=== PATIENT | female | born 1990 | race Caucasian/White ===

== ENCOUNTER 2021-03-07 06:09 | Inpatient (IN) | payer MEDICAID, OTHER ==
--- NOTE | 2021-03-07 06:39 | ED ---
Psych HPI - General Chief Complaint: Psychiatric Symptoms Stated Complaint: Mental Health Time Seen by Provider: 03/07/21 06:21 Source: patient, family, RN notes reviewed, old records reviewed Mode of arrival: ambulatory - History of Present Illness Initial Comments: This Patient is a 30-year-old female who presents to the emergency department with her mother. Chief complaint is significant anxiety and suicidal thoughts. Patient reports that she has a long mental health history and previously was on Prozac and Abilify. She reports that she stopped Prozac 6 months ago due to an causing her to lactate. Patient states that she then stopped her Abilify as these medications had to be together to work. Since that time she's been self- medicating with marijuana (she has medical marijuana card), however she had to stop marijuana use that she's trying to get apartment. The apartments are federally funded based on income and she cannot have a positive drug test. Patient reports that she has been having significant difficulty with obtaining mental health services. She does see [facility], and states that her current counselor has not been helpful and has working to change her social security inflammation and [facility]. Patient states that she has lost 14 pounds within past few months and has poor sleep. She states she'll eat and sleep 3 hours of time. When she arrives emergency department she is hyperverbal and mildy agitated. She also notes that she has significant adverse reactions to different medications, stating that ativan has reverse affect on her. She said multiple suicide attempts in the past, and states "I am so dumb I can't even kill myself successfully." Denies other substance abuse and alcohol use. Patient reports that she was hospitalized 10 years ago after suffering from depression. She reports that when she has changed medication she does best when being supervised and she's had significant adverse or reverse effects from multiple psychiatric medications. - Related Data Allergies Allergy/AdvReac Type Severity Reaction Status Date / Time amoxicillin Allergy Rash/Hives Verified 03/07/21 06:19 clindamycin Allergy Rash/Hives Verified 03/07/21 06:19 Review of Systems ROS Statement: Those systems with pertinent positive or pertinent negative responses have been documented in the HPI. ROS Other: All systems not noted in ROS Statement are negative. Past Medical History Additional Past Medical History / Comment(s): back pain Past Surgical History: Ear Surgery Past Psychological History: ADD/ADHD, Anxiety, Bipolar, Depression, Schizophrenia Smoking Status: Former smoker Past Alcohol Use History: None Reported Past Drug Use History: Marijuana General Exam - General Exam Comments Initial Comments: Alert and oriented 30-year-old female. Agitated and hyperverbal. Limitations: no limitations General appearance: alert, in no apparent distress Head exam: Present: atraumatic, normocephalic, normal inspection Eye exam: Present: normal appearance, PERRL, EOMI. Absent: scleral icterus, conjunctival injection, periorbital swelling ENT exam: Present: normal exam Neck exam: Present: normal inspection. Absent: tenderness, meningismus, lymphadenopathy Respiratory exam: Present: normal lung sounds bilaterally. Absent: respiratory distress, wheezes, rales, rhonchi, stridor Cardiovascular Exam: Present: regular rate, normal rhythm, normal heart sounds. Absent: systolic murmur, diastolic murmur, rubs, gallop, clicks GI/Abdominal exam: Present: soft, normal bowel sounds. Absent: distended, tenderness, guarding, rebound, rigid Back exam: Present: normal inspection Neurological exam: Present: alert, oriented X3 Psychiatric exam: Present: agitated, anxious, suicidal ideation, other (manic behaviour, hyperverbal ). Absent: normal affect Skin exam: Present: warm, dry, intact, normal color. Absent: rash Course Vital Signs 03/07/21 06:13 Temperature 98.1 F Pulse Rate 93 Respiratory 20 Rate Blood Pressure 115/76 O2 Sat by Pulse 99 Oximetry Medical Decision Making - Medical Decision Making 30-year-old female presents for manic state and suicidal thoughts. Patient is hyperverbal and mildly agitated in exam room. She has been cooperative. Alcohol test is negative. Patient is medically clear at this time for EPS evaluation at 6:39 AM. She was evaluated by EPS and is determined to best be suited with inpatient treatment and admission to balance her medications. Patient is agreeable to this plan. She's been cooperative and emergency department. Was admitted to psychiatric floor. - Lab Data Lab Results 03/07/21 Range/Units 07:14 Urine Opiates Screen Not Detected (NotDetected) Ur Oxycodone Screen Not Detected (NotDetected) Urine Methadone Screen Not Detected (NotDetected) Ur Propoxyphene Screen Not Detected (NotDetected) Ur Barbiturates Screen Not Detected (NotDetected) U Tricyclic Antidepress Not Detected (NotDetected) Ur Phencyclidine Scrn Not Detected (NotDetected) Ur Amphetamines Screen Not Detected (NotDetected) U Methamphetamines Scrn Not Detected (NotDetected) U Benzodiazepines Scrn Not Detected (NotDetected) Urine Cocaine Screen Not Detected (NotDetected) U Marijuana (THC) Screen Detected H (NotDetected) Disposition Clinical Impression: Manic behavior, Suicidal ideation Disposition: TRANSFER TO PSYCH HOSP/UNIT Condition: Stable Is patient prescribed a controlled substance at d/c from ED?: No Referrals: [facility] [Primary Care Provider] - 1-2 days Time of Disposition: 09:36
[2021-03-07 07:45] LABS: Amphetamine Screen,Urine Not Detected (NotDetected); Barbiturate Screen,Urine Not Detected (NotDetected); Benzodiazepines Screen,Urine Not Detected (NotDetected); Cocaine Screen,Urine Not Detected (NotDetected); Methadone Screen, Urine Not Detected (NotDetected); Opiate Screen,Urine Not Detected (NotDetected); Oxycodone Screen, Urine Not Detected (NotDetected); Phencyclidine Screen,Urine Not Detected (NotDetected); Tricyclic Antidepressant,Urine Not Detected (NotDetected); Urn Cannabinoid Scrn Detected (NotDetected)
[2021-03-07] MEDS ORDERED: MAGNESIUM HYDROXIDE 2,400 MG/10 ML CUP PO PRN (09:32)
[2021-03-07] MEDS ORDERED: ACETAMINOPHEN TAB 325 MG TAB PO PRN (09:32)
[2021-03-07] MEDS ORDERED: MAG HYDROX/AL HYDROX/SIMETH 30 ML CUP PO PRN (09:32)
[2021-03-07 09:41] LABS: Appearance,Urine Cloudy (Clear); Bilirubin,Urine Negative (Negative); Blood,Urine Negative (Negative); Calcium Oxalate Crystals,Urine Moderate /hpf; Color,Urine Yellow; Glucose,Urine (UA) Negative (Negative); Hyaline Casts,Urine 1 /lpf (0-2); Ketones,Urine Negative (Negative); Leukocyte Esterase,Urine Negative (Negative); Mucus,Urine Many /hpf; Nitrite,Urine Negative (Negative); Protein,Urine 1+ (Negative); RBC,Urine 1 /hpf (0-5); Specific Gravity,Urine 1.031 (1.001-1.035); Squamous Epithelial Cell,Urine 16 /hpf (0-4); Urobilinogen,Urine <2.0 mg/dL (<2.0); WBC,Urine 2 /hpf (0-5)
[2021-03-07] MEDS ORDERED: haloperidoL 5 MG TAB PO PRN (09:51)
[2021-03-07] MEDS ORDERED: HALOPERIDOL LACTATE 5 MG/ML 1 ML VIAL IM PRN (09:52)
[2021-03-07] MEDS ORDERED: OLANZapine 5 MG TAB PO STA (11:51)
--- NOTE | 2021-03-07 13:21 | HP ---
HISTORY AND PHYSICAL IDENTIFYING DATA: The patient is a 30-year-old female. She has been residing with her mother who brought her to the ED for evaluation. CHIEF COMPLAINT: The patient had high anxiety. She was hyperverbal and showed excessive energy. She was disorganized in thoughts. HISTORY OF PRESENTING ILLNESS: The patient has had long-term psychiatric issues. She said that she has had 18 or 19 psychiatric hospitalizations. Her last hospitalization was in [place] in October 2017. She had been living in [place] for a few years. The patient notes that she had 1 hospitalization in this facility about 10 years ago when she was hospitalized for depression. She said that she had been diagnosed with autism or Asperger's as a child and in fact starting at a very young age had been tried on various medications. She was somewhat vague about the indication for the medications. She notes that at age 12, she was tried on lithium and had been tried for 3 other times on lithium with the last being when she was 17 or 18. She said each time she was on lithium, she has blackouts. She says starting as a child and continuing up to the present, she has been on most every psychotropic medication that she is aware of. She listed about 8 or 9 psychiatric diagnoses that she has had including schizophrenia, schizoaffective disorder, bipolar disorder, trichotillomania, obsessive compulsive disorder amongst others. She says that she believes she likely has bipolar disorder. She notes that she has episodes of rayo where she has decreased need for sleep. She will have excessive energy. Her thoughts go fast. People will tell her she is talking too much and that she cannot stop talking. She will have some impulsive behavior. She said she has been in a manic episode for the last 1-2 weeks. She notes in the past that she will get into manic episodes that may last 1 or 2 weeks and then she can go from that into depression. She says that she can cycle back and forth between manic episodes that she described and depression. She had been on a combination of Abilify and Prozac, though she stopped those 6 months ago because she thought they were causing . She said in the last 6 months, she essentially has only been using marijuana to help quiet some of her psychiatric symptoms. She notes long-term use of marijuana going back to teenage years. She has been smoking marijuana on a daily basis. She feels that the marijuana has been somewhat helpful for her to manage her symptoms. She notes that she can get into panic attacks where it is hard to breathe. She will do behavior such as "stemming" in order to help calm her nerves. She has no noted at times some abnormal movements that she has had. She was uncertain about whether she has had auditory hallucinations. She says that she does have some visual illusions where she sees shimmering like one might see in a distance on the road. She said she can see that kind of shimmering when she looks up at electric towers. She says she recognizes that it is not likely reality. She indicated some issues of posttraumatic problems, though did not provide details. She is currently not on any psychotropic medications. She is admitted for further evaluation. SUBSTANCE USE HISTORY: She reports only use of marijuana and no use of other abusive substances. She has used alcohol in the past, though has not used alcohol for a number of years. PAST MEDICAL HISTORY: Patient has elevated cholesterol, asthma, and scoliosis with some back pain. She has 2 children, ages 7 and 10, though she has not had custody or contacts since they were very young. FAMILY AND SOCIAL HISTORY: Patient notes a high school diploma. Currently, she is living with the mother of her half-sister whom she calls her mother. She has 4 half-sisters and says she has a good relationship with 3 of them. She had been previously living with her father in [place] for 2 years, though the 2 of them had conflicts, so she moved out. She notes that she has written 1 book entitled "[place]" with P and the C being capitalized." The book is available on [employer]. It is a book of poetry. She has been working on a 2nd book. She said that she has too much difficulties with focus and concentration to be able to attend any formal education classes such as going to college. MENTAL STATUS EXAM: The patient was quite restless. She gave fairly good eye contact. It was noteworthy that she presented in a very intense manner. She would talk fast. She would jump from subject to subject. She had flight of ideas, loose association and tangential thinking. She had rapid pressured speech. She could be interrupted, though at times she needed to have very cleared direction to be quiet in order to have an adequate conversation. Her affect was intense. Her mood dysphoric. She was significantly distressed. She suggested some visual hallucinations. She voiced no thoughts of harm. She said that the report of her having suicide thoughts from the emergency room record was not accurate, though she acknowledged a past history of suicide thoughts, though not in the last year or more. On cognitive exam, she did make an effort to answer formal cognitive questions. She was oriented and alert. She was aware of current circumstances and could give information about recent events that is consistent with what is documented in the medical record. Insight was fair to good. Judgment uncertain. Fund of knowledge average or above average. PHYSICAL EXAM: As per medical consultation. ASSESSMENT: This 30-year-old female was diagnosed with bipolar affective disorder and autistic spectrum disorder. She has been having a manic episode over the last 2 weeks, though also describes episodes of rayo and depression as a fairly regular occurrence for her. She has been using marijuana on a daily basis, which likely exacerbates her symptoms. I would anticipate her having significant withdrawal issues from marijuana. She does appear to have some family supports. STRENGTHS: Include [place] intelligence and some reasonable level of awareness of some of her psychiatric issues. WEAKNESS: Includes disordered thinking. DIAGNOSES: 1. Bipolar affect disorder, manic phase with psychotic features. 2. Autistic spectrum disorder. 3. Hypercholesterolemia. 4. Scoliosis. 5. Asthma. RECOMMENDATIONS: Patient will be admitted for comprehensive medical psychiatric and psychosocial evaluation. We will engage the patient in individual and group therapeutic activities. I will start the patient on Zyprexa 5 mg 3 times a day. The aim of Zyprexa is to address bipolar manic symptoms along with some apparent psychotic symptoms. I had an extensive discussion with the patient regarding medication treatments. I briefly reviewed expectation of treatment, side effects and potential concerns with Zyprexa in regard to metabolics and movement disorder issues. I encouraged the patient to do some therapeutic walking on a regular basis to help contain some of her manic symptoms. I encouraged her to make efforts at groups. We will focus on stabilization and discharge planning. MMCAMILOL / GAURIN: [id number] /
[2021-03-07] MEDS: ALBUTEROL INHALER 60 PUFF/8 GM INHALER (MHU) INHALATION PRN ×2 (15:06→21:07)
[2021-03-07] MEDS: OLANZapine 5 MG TAB PO SCH ×2 (15:06→21:07)
--- NOTE | 2021-03-08 01:15 | P.CONS ---
History of Present Illness - Reason for Consult Consult date: 03/07/21 - History of Present Illness The patient is a 30-year-old female with a PMH of mild intermittent asthma, hyperlipidemia, bipolar disorder, ADHD, tobacco abuse, and chronic back pain who presented to the emergency room with complaints of anxiety and suicidal ideation. The patient reports that she was previously using Prozac and Abilify which she subsequently discontinued since she began to lactate. The patient then began self medicating with marijuana for her anxiety which she is unable to currently use since she needs to have a negative drug screen to obtain affordable housing. The patient reported a small scab on the left antecubital fossa which was previously a pimple that she picked at. She denied additional complaints. She denied chest pain, shortness of breath, nausea, vomiting, fever, chills, cough, abdominal pain, diarrhea. Review of Systems Pertinent positives and negatives as discussed in HPI, a complete review of systems was performed and all other systems are negative. Past Medical History Additional Past Medical History / Comment(s): back pain Past Surgical History: Ear Surgery Past Psychological History: ADD/ADHD, Anxiety, Bipolar, Depression, Schizophrenia Smoking Status: Former smoker Past Alcohol Use History: None Reported Past Drug Use History: Marijuana Medications and Allergies Home Medications Medication Instructions Recorded Confirmed Type Albuterol Sulfate [Proair Hfa] 1 - 2 puff INHALATION RT-Q6H PRN 03/07/21 03/07/21 History Atorvastatin [Lipitor] 20 mg PO DAILY 03/07/21 03/07/21 History Allergies Allergy/AdvReac Type Severity Reaction Status Date / Time amoxicillin Allergy Rash/Hives Verified 03/07/21 10:30 clindamycin Allergy Rash/Hives Verified 03/07/21 10:30 Physical Exam Vitals: Vital Signs Temp Pulse Pulse Resp BP BP Pulse Ox 03/07/21 11:52 99.3 F 102 H 20 113/67 03/07/21 06:13 98.1 F 93 20 115/76 99 Intake and Output 03/07/21 03/07/21 03/07/21 06:59 14:59 22:59 Other: Weight 52.707 kg General: non toxic, no distress, appears older than stated age, normal weight Derm: Right antecubital fossa small ulcer 1 cm with mild surrounding erythema, no unusual ecchymoses, warm, dry Head: atraumatic, normocephalic, symmetric Eyes: EOMI, no lid lag, anicteric sclera, pupils equal round reactive to light ENT: Nose and ears atraumatic, no thrush, no pharyngeal erythema Neck: No thyromegaly, no cervical lymphadenopathy, trachea midline, supple Mouth: no lip lesion, mucus membranes moist Cardiovascular: S1S2 reg, no murmur, positive posterior tibial pulse bilateral, no edema, capillary refill less than 2 seconds Lungs: CTA bilateral, no rhonchi, no rales , no accessory muscle use Abdominal: soft, nontender to palpation, no guarding, no appreciable organomegaly, normal bowel sounds Ext: no gross muscle atrophy, muscle strength 5 out of 5 in all 4 extremities grossly, no contractures Neuro: CN II-XI grossly intact, light touch intact all 4 extremities, finger to nose within normal limits Psych: Alert, oriented, pressured speech, flight of ideas Results Labs: Abnormal Lab Results - Last 24 Hours (Table) 03/07/21 03/07/21 Range/Units 07:14 07:14 Urine Appearance Cloudy H (Clear) Urine Protein 1+ H (Negative) Ur Squamous Epith Cells 16 H (0-4) /hpf Calcium Oxalate Crystal Moderate H (None) /hpf Urine Mucus Many H (None) /hpf U Marijuana (THC) Screen Detected H (NotDetected) Assessment and Plan Plan: Mild intermittent asthma -Albuterol inhaler when necessary Hyperlipidemia -Continue with home Lipitor L antecubital fossa ulcer -Topical antibiotics for now Depression and anxiety -As per psychiatry Thank you for allowing us to participate in the care of this patient. We will follow peripherally. Do not hesitate to contact us with questions. Someone can be reached from the [facility] hospitalist group at all hours of the day at [phone].
[2021-03-08] MEDS: MUPIROCIN 2% OINT 22 GM TUBE TOPICAL SCH ×4 (03:51→21:18)
[2021-03-08] MEDS: ALBUTEROL INHALER 60 PUFF/8 GM INHALER (MHU) INHALATION PRN ×2 (06:10→13:43)
[2021-03-08 07:36] LABS: Basophils % (A) 1 %; Eosinophils # (A) 0.1 k/uL (0-0.7); Eosinophils % (A) 2 %; HCT 46.2 % (34.0-46.0); HGB 15.5 gm/dL (11.4-16.0); Lymphocytes # (A) 2.4 k/uL (1.0-4.8); Lymphocytes % (A) 46 %; MCH 30.9 pg (25.0-35.0); MCHC 33.7 g/dL (31.0-37.0); MCV 91.7 fL (80.0-100.0); Mean Platelet Volume 7.4; Monocytes # (A) 0.4 k/uL (0-1.0); Monocytes % (A) 7 %; Neutrophils # (A) 2.2 k/uL (1.3-7.7); Neutrophils % (A) 42 %; Platelet Count 203 k/uL (150-450); RBC 5.03 m/uL (3.80-5.40); RDW 12.4 % (11.5-15.5); WBC 5.2 k/uL (3.8-10.6)
[2021-03-08 07:47] LABS: ALT 13 U/L (4-34); AST 21 U/L (14-36); African American GFR (CKD) >90 (>60 ml/min/1.73 sqM); Albumin 5.2 g/dL (3.5-5.0); Alkaline Phosphatase 55 U/L (38-126); Anion Gap 12 mmol/L; Blood Urea Nitrogen 14 mg/dL (7-17); Calcium 9.8 mg/dL (8.4-10.2); Carbon Dioxide 23 mmol/L (22-30); Chloride 106 mmol/L (98-107); Glucose 91 mg/dL (74-99); Non-African American GFR(CKD) >90 (>60 ml/min/1.73 sqM); Potassium 3.8 mmol/L (3.5-5.1); Sodium 141 mmol/L (137-145); Total Protein 7.9 g/dL (6.3-8.2)
[2021-03-08 08:02] LABS: Bilirubin,Unconjugated 0.9 mg/dL (0.0-1.1); Total Bilirubin 0.9 mg/dL (0.2-1.3)
[2021-03-08] MEDS: OLANZapine 5 MG TAB PO SCH (08:33)
[2021-03-08] MEDS: ATORVASTATIN 20 MG TAB PO SCH (08:33)
[2021-03-08 12:09] LABS: Hemoglobin A1C 4.7 % (4.0-6.0)
[2021-03-08 13:10] VITALS: BMI 21.2
[2021-03-08 14:34] LABS: Chol/HDL Ratio 4.49; Cholesterol 256 mg/dL (0-200); LDL Cholesterol,Calculated 175.6 mg/dL (0.0-131.0)
--- NOTE | 2021-03-08 15:50 | PN ---
PROGRESS NOTE DATE OF SERVICE: 03/08/2021 CHIEF COMPLAINT: The patient had high anxiety. She was hyperverbal and showed excessive energy. She was disorganized in thoughts. INTERVAL HISTORY: Patient has been doing fair. Yesterday she showed excessive energy and impulsive behavior. It is noted she tried to attend groups, though said that the noise and conversation was too stimulating for her and it was hard for her to get focused. She wandered the unit. At times she could get loud. She tended to be hyperverbal much of the time. She has been cooperative with care. She said she only slept minimally last night. Today she has been up. It is noted that she has attended groups today and one group this morning. The following was documented: "The patient has been feeling depressed, having crying spells, feeling hopeless, confused, lonely, empty, has some guilt/shame, feeling useless, having withdrawal symptoms, feeling talked about, anxiety, poor concentration, mood swings, poor energy, feeling watched and feeling controlled." She did not voice any thoughts of harming herself. In other groups, she attended for least half or more of the groups. Some of the time she would get intense in her manner and might speak over others. Sometimes she needed a fair amount of support and reminders to give space to others in the group. She was distressed when I talked to her. She said that belongings that she brought with her to the unit have come up missing. She was very upset about that. She does say her medications are helping. She talked at length about how she believes the medications affect her and that she would be very reluctant going up to any higher dose, stating that the way she responds to medications, it is critical that the doses be titrated up slowly. She says when doses of medications are put a higher doses too quickly, she easily becomes tolerant and then the medications are no longer effective. She continues to be fairly intense in her manner. She says people misinterpret her when they say she her thoughts go fast. She says her problem is not that her thoughts go fast, but that she feels she is flooded with too many thoughts at one time and she cannot get all her words out to move on to the next subject. It is noteworthy that she seems just a little more organized and contained in her thoughts, though still fairly symptomatic. She tolerates her psychotropic medications. MENTAL STATUS: Patient was somewhat restless. She answered questions with brief responses. She tended to talk quite a bit. She was spontaneous and interactive. She had pressured speech and flight of ideas. Her affect was intense, her mood depressed. She was moderately distressed. It was difficult to assess for thought disorder. She voiced no thoughts of harm. Cognition was clear. ASSESSMENT: I will continue the current diagnosis and treatment plan. I discussed options with the patient, including looking at titrating up on her Zyprexa. At this point the patient chooses to continue with the current dose. She believes that she does best with medications when the titration is slower. She does seem to be showing a little bit of improvement, though still quite intense and showing manic symptoms. We will focus on stabilization and discharge planning. JOEL / RADHA: [id number] /
[2021-03-08] MEDS: MELATONIN 5 MG TABLET PO SCH (21:17)
[2021-03-09] MEDS: ALBUTEROL INHALER 60 PUFF/8 GM INHALER (MHU) INHALATION PRN ×3 (06:30→20:53)
[2021-03-09] MEDS: ATORVASTATIN 20 MG TAB PO SCH (08:46)
[2021-03-09] MEDS: MUPIROCIN 2% OINT 22 GM TUBE TOPICAL SCH ×3 (08:46→21:44)
--- NOTE | 2021-03-09 16:04 | PN ---
PROGRESS NOTE DATE OF SERVICE: 03/09/2021. CHIEF COMPLAINT: The patient had high anxiety. She was hyperverbal and showed excessive energy. She was disorganized in thoughts. INTERVAL HISTORY: Patient has been doing fair. She continues to be quite intense in her manner. She showed fairly intense behavior yesterday much of the day. When I saw her in the morning yesterday, she was adamant about the idea that Zyprexa was causing her to have some visual hallucinations of seeing some flickering in front of her face. She elected to stop taking Zyprexa. When we talked yesterday about concerns relating to marijuana withdrawal she was very adamant about the idea that "medicinal marijuana" has been highly beneficial to her and that she had been using it in significant amounts on a daily basis at least over the last 3 months. She declined to discuss issues further. In regard to what issue she may be dealing with now, I made an effort to talk with her about the nature of substance withdrawal as well as her symptoms suggestive of bipolar disorder. In the midst of that conversation, the patient left the office and when I made efforts to approach her later on she stated she did not want to review any issues further. She also said she was not wanting to be on any psychotropic medications at that time. It is noted she only slept about 2-1/2 hours last night. Nursing had talked with her about p.r.n. medications and/or sleep aids. The patient indicated that "I am an insomniac and average about 2 to 5 hours every 48 hours for sleep." In regards to sleep medication, she told nursing "they won't work any ways." It was noted that yesterday she was out on the unit. There were periods where she was loud and angry. She got accusatory of one patient for some possible boundary issues. Later on in the day, she was walking with a few patients and was quite elevated in her mood. She was laughing. She was talking in a somewhat loud voice, though was very animated and upbeat. Today she has been a little more subdued in her mood. She has had some periods today where she can be intense in her manner. In one group at 7:30 a.m. the following was documented, "the patient got defensive and loud towards one patient during group. The patient was redirectable. The patient has feelings of depression, confusion, empty, shame, overeating, feeling talked about, anxiety, poor concentration, relationship problems, mood swings, sleep disturbance and nervousness." When I talked to the patient today basically said she did not have any issues to address. She had no specific complaints. She said that her plan would be to review medication issues further tomorrow with Dr. Florentino. MENTAL STATUS EXAM: Patient had a fairly quiet manner for the most part. She was somewhat restless. She answered 1 or 2 questions and then chose not to have any further discussion. Her thoughts were clear. She had a somewhat intense affect, though not to a significant degree. Her mood was dysphoric. She seemed moderately distressed. It was difficult to assess for thought disorder or thoughts of harm. Cognition was clear. ASSESSMENT: I will continue with the current diagnosis and treatment plan. At present, the patient is off psychotropic medications. She does continue to show signs of irritability and mood changes, likely reflective of early acute withdrawal from marijuana. She also shows signs of mood swings, possibly some bipolar symptoms complicating the picture. At this point, she will continue off psychotropic medications. We will continue to provide support and monitor for any significant difficulties. We will focus on stabilization and discharge planning. MMCAMILOL / IJN: [id number] /
[2021-03-09] MEDS: MELATONIN 5 MG TABLET PO SCH (20:52)
[2021-03-10] MEDS: ALBUTEROL INHALER 60 PUFF/8 GM INHALER (MHU) INHALATION PRN ×2 (06:49→18:51)
[2021-03-10] MEDS: MUPIROCIN 2% OINT 22 GM TUBE TOPICAL SCH ×3 (08:34→21:30)
[2021-03-10] MEDS: ATORVASTATIN 20 MG TAB PO SCH (08:34)
--- NOTE | 2021-03-10 13:04 | P.PN ---
Progress Note - Text Progress Note Date: 03/10/21 Interval History: Patient was seen attending group and was directable and agreeable to speak with teletypewriter operator in the office. Patient reports that she has severe mental illness that is treatment resistant. She reports that she has trialed multiple medications in the past but that she always suffers from some sort of reaction or side effects from these medications. The patient expresses that she has not been in any adequate therapy as she has significant disagreements with her case management social worker at [facility]. The patient is currently denying any suicidal or homicidal ideation, intention, and/or plan. She is not reporting any auditory or visualizations. She is denying any paranoia or other delusions. The patient presents as her biggest concern is that she feels like she has multiple thoughts going on at once. She denies any racing thoughts in particular but states that she has a difficult time tolerating her thoughts, others, and her environment. The patient is open to trying a trial of Geodon and Prozac at low doses. The patient also displays significant symptoms of rayo including pressured speech, mood lability, grandiosity. Mental Status Exam: General Appearance: Patient appears to be stated age is alert, directable, and cooperative. Patient is of a thin build and is wearing glasses. She has multiple tattoos. Behavior: Psychomotor activity is elevated. Patient is unable to sit still. Speech: Patient's speech is pressured, spontaneous, loud in volume. Mood/Affect: Mood is "doing okay." Affect is elevated, expansive, and intense. Suicidality/Homicidality: Patient denies having any suicidal or homicidal ideation intent or plan. Perceptions: Patient denies any visual hallucinations and denies any auditory hallucinations Though content/process: There is no evidence of any delusional thought content and thought process is linear and goal-directed. Memory and concentration: AOX3, grossly intact for the purposes of this session Judgment and insight: Poor Assessment Bipolar disorder, manic episode Autism spectrum disorder Posttraumatic stress disorder Cluster B personality traits Plan: -Patient continues to meet criteria for inpatient psychiatric admission for symptom stabilization and safety. Patient has signed adult voluntary form. -Medications: Start Geodon 20 mg by mouth twice a day with meals for mood stabilization Start Prozac 10 mg by mouth daily at bedtime for depression/anxiety/PTSD -When necessary Ativan and Haldol for agitation/aggression. -NRT - nicotine patch -SW on board for discharge planning. Encouraged the patient to participate in milieu.
[2021-03-10] MEDS: FLUoxetine HCL 10 MG CAP PO SCH (18:46)
[2021-03-10] MEDS: ZIPRASIDONE 20 MG CAP PO SCH (18:46)
[2021-03-10] MEDS ORDERED: FLUoxetine HCL 10 MG CAP PO SCH (21:00)
[2021-03-10] MEDS: MELATONIN 5 MG TABLET PO SCH (21:31)
[2021-03-11] MEDS: MUPIROCIN 2% OINT 22 GM TUBE TOPICAL SCH ×4 (00:41→20:52)
[2021-03-11] MEDS: ATORVASTATIN 20 MG TAB PO SCH (08:35)
[2021-03-11] MEDS: ZIPRASIDONE 20 MG CAP PO SCH ×2 (08:36→18:39)
[2021-03-11] MEDS: ALBUTEROL INHALER 60 PUFF/8 GM INHALER (MHU) INHALATION PRN (09:37)
[2021-03-11] MEDS ORDERED: hydrOXYzine HCL 25 MG TAB PO PRN (09:56)
--- NOTE | 2021-03-11 10:09 | P.PN ---
Progress Note - Text Progress Note Date: 03/11/21 Interval History: Patient was seen wandering the hallways and was directable and agreeable to s peak with gag writer in the office. The patient reports that she had a rough night last night. She describes that she felt overwhelmed with emotion because she was thinking about her children, her situation, and her difficulty with coping. She expresses that she began crying hysterically last night which caused staff to be mad at her. She reports that she is only been receiving 2-3 hours of sleep over the last few days. She is currently not endorsing any suicidal or homicidal ideation, intention, and/or plan. She is not reporting any auditory or visual hallucinations. She is denying any paranoia or other delusions. She continues to endorse racing thoughts and mood lability. She has been adherent with her medications and is not reporting any significant side effects at this time. Mental Status Exam: General Appearance: Patient appears to be stated age is alert, directable, and cooperative. Patient is of a thin build and is wearing glasses. She has multiple tattoos. Behavior: Psychomotor activity is elevated. Speech: Patient's speech is pressured, spontaneous, loud in volume. Mood/Affect: Mood is "I had a rough night." Affect is elevated, expansive, and intense. Suicidality/Homicidality: Patient denies having any suicidal or homicidal ideation intent or plan. Perceptions: Patient denies any visual hallucinations and denies any auditory hallucinations Though content/process: There is no evidence of any delusional thought content and thought process is linear and goal-directed. Memory and concentration: AOX3, grossly intact for the purposes of this session Judgment and insight: Poor Assessment Bipolar disorder, manic episode Autism spectrum disorder Posttraumatic stress disorder Cluster B personality traits Plan: -Patient continues to meet criteria for inpatient psychiatric admission for symptom stabilization and safety. Patient has signed adult voluntary form. -Medications: Continue Geodon 20 mg by mouth twice a day with meals for mood stabilization Continue Prozac 10 mg by mouth daily at bedtime for depression/anxiety/PTSD Start Atarax 50 mg at bedtime for insomnia. -When necessary Atarax and Haldol for agitation/aggression. -NRT - nicotine patch -SW on board for discharge planning. Encouraged the patient to participate in milieu.
[2021-03-11] MEDS: HYDROCORTISONE 1% CREAM 30 GM TUBE TOPICAL PRN (14:41)
[2021-03-11] MEDS: FLUoxetine HCL 10 MG CAP PO SCH (18:39)
[2021-03-11] MEDS: MELATONIN 5 MG TABLET PO SCH (20:52)
[2021-03-11] MEDS: hydrOXYzine HCL 25 MG TAB PO SCH (20:52)
[2021-03-12] MEDS: ATORVASTATIN 20 MG TAB PO SCH (07:58)
[2021-03-12] MEDS: ZIPRASIDONE 20 MG CAP PO SCH ×2 (07:58→18:38)
[2021-03-12] MEDS: MUPIROCIN 2% OINT 22 GM TUBE TOPICAL SCH ×3 (07:58→23:00)
[2021-03-12] MEDS: HYDROCORTISONE 1% CREAM 30 GM TUBE TOPICAL PRN ×2 (08:03→16:41)
--- NOTE | 2021-03-12 10:30 | P.PN ---
Progress Note - Text Progress Note Date: 03/12/21 Interval History: Patient was seen wandering the hallways and was directable and agreeable to spe ak with senior medical writer in the office. The patient reports she was able to sleep for 6 hours last night with minimal nighttime awakenings. She reports significant improvement in her sleep and energy. She is currently not reporting any suicidal or homicidal ideation, intention, and/or plan. She reports no auditory or visual hallucinations. She denies any paranoia or delusions. She has been adherent with her medications and is not reporting any significant side effects at this time. She states she has not used the atarax during the day as she feels like she did not experience any panic attacks throughout the day. The patient continues to endorse mood lability, pressured speech, and racing thoughts. She is future- oriented and wrote down many plans in a journal for when she discharged. Her goals include stabilizing her income, changing her [facility] provider and changing her [facility] case checker. Mental Status Exam: General Appearance: Patient appears to be stated age is alert, directable, and cooperative. Patient is of a thin build and is wearing glasses. She has multiple tattoos. Behavior: Psychomotor activity is elevated but less so than yesterday. Speech: Patient's speech is pressured, spontaneous, loud in volume. Mood/Affect: Mood is "Today is the first good day." Affect is elevated, expansive and bright. Suicidality/Homicidality: Patient denies having any suicidal or homicidal ideation intent or plan. Perceptions: Patient denies any visual hallucinations and denies any auditory hallucinations Though content/process: There is no evidence of any delusional thought content and thought process is with a flight of ideas. Memory and concentration: AOX3, grossly intact for the purposes of this session Judgment and insight: Poor Assessment Bipolar disorder, manic episode Autism spectrum disorder Posttraumatic stress disorder Cluster B personality traits Plan: -Patient continues to meet criteria for inpatient psychiatric admission for symptom stabilization and safety. Patient has signed adult voluntary form. -Medications: Continue Geodon 20 mg by mouth twice a day with meals for mood stabilization Increase Prozac to 20 mg by mouth daily at bedtime for depression/anxiety/PTSD Continue Atarax 50 mg at bedtime for insomnia. -When necessary Atarax and Haldol for agitation/aggression. -NRT - nicotine patch -SW on board for discharge planning. Encouraged the patient to participate in milieu.
[2021-03-12] MEDS: ALBUTEROL INHALER 60 PUFF/8 GM INHALER (MHU) INHALATION PRN (13:06)
[2021-03-12] MEDS: FLUoxetine HCL 20 MG CAP PO SCH (18:38)
[2021-03-12] MEDS: hydrOXYzine HCL 25 MG TAB PO SCH (21:02)
[2021-03-12] MEDS: MELATONIN 5 MG TABLET PO SCH (21:03)
[2021-03-13] MEDS: ATORVASTATIN 20 MG TAB PO SCH (08:22)
[2021-03-13] MEDS: ZIPRASIDONE 20 MG CAP PO SCH ×2 (08:23→18:42)
[2021-03-13] MEDS: MUPIROCIN 2% OINT 22 GM TUBE TOPICAL SCH ×3 (08:23→22:42)
[2021-03-13] MEDS: HYDROCORTISONE 1% CREAM 30 GM TUBE TOPICAL PRN ×2 (08:23→18:42)
[2021-03-13] MEDS: ALBUTEROL INHALER 60 PUFF/8 GM INHALER (MHU) INHALATION PRN (13:25)
--- NOTE | 2021-03-13 13:38 | P.PN ---
Progress Note - Text Progress Note Date: 03/13/21 Subjective: Patient was seen today as a cross coverage for Dr. Florentino. The patient was evaluated, chart reviewed, case discussed with the treatment team. Patient reports fair sleep last night, and appetite was reported as " great". Patient has been going to groups and other unit activities. The patient is compliant with her medications and denies any adverse reactions. patient reports feeling stable emotionally, and he denies any active symptoms of depression, anxiety, or mood instability. She denies feeling hopeless, suicidal, or homicidal. She denies any hallucinations, paranoid ideation, or delusions. Denies any manic symptoms, agitation, or anger problems. Reports feeling positive after she had a visit with her mother today and she is expecting discharge on Monday. discussed with the patient to increase the dose of Geodon, but she refused and he reports the dose was just increased yesterday. She is going to take a shower today, and states that she wasn't refusing taking shower but she had very sensitive his skin and shoes special shower gel and soap at home. Objective: Vitals has been reviewed. Mental status examination; Appearance: The patient appears stated age, adequately groomed and dressed, no specific features. Gait/posture: Normal gait, Normal arm swinging: No abnormal movements. Attitude and behavior: engaged, cooperative, eye contact. Motor activity: Normal psychomotor activity Speech: increased amounts and some degree hyperverbal Mood: Anxious Affect: Constricted Thought form: goal-directed, linear, coherent. Thought content: Non-delusional, denies suicidal thoughts, denies homicidal thoughts, denies intentions or plans. Perception: Denies any auditory or visual hallucinations Attention: No impairment. Orientation: Patient patient was fully oriented to time place person and situation. Insight: Patient has fair insight about her psychiatric disorder. Judgment: Patient has fair judgment about her psychiatric treatment. Assessment: bipolar disorder, manic episode. Post traumatic stress disorder. Cluster B traits. Autism spectrum disorder. Plan: Continue inpatient level of care due to need for further monitoring and stabilization Precautions: Continue 15 minutes check for safety. Consider medical consultation if any acute medical issues arise. Provide the patient individual, group therapy, substance use disorder counseling to give better insight and learn coping skills. Medications: continue Geodon 20 mg twice daily for mood stabilization. Continue Prozac 20 mg daily for depression, anxiety, and PTSD. Continue Atarax 50 mg at bedtime for insomnia. Continue nicotine replacement therapy. Continue as needed medications for psychiatric emergencies including psychosis, agitation and anxiety. Continue non-psychiatric medications for medical conditions as recommended by the medical team. Discharge patient to OUTPATIENT services upon a stabilization
[2021-03-13] MEDS: FLUoxetine HCL 20 MG CAP PO SCH (18:42)
[2021-03-13] MEDS: MELATONIN 5 MG TABLET PO SCH (21:48)
[2021-03-13] MEDS: hydrOXYzine HCL 25 MG TAB PO SCH (21:48)
[2021-03-14] MEDS: MUPIROCIN 2% OINT 22 GM TUBE TOPICAL SCH ×3 (08:53→22:07)
[2021-03-14] MEDS: ATORVASTATIN 20 MG TAB PO SCH (08:53)
[2021-03-14] MEDS: ZIPRASIDONE 20 MG CAP PO SCH ×2 (08:53→18:51)
--- NOTE | 2021-03-14 13:41 | P.PN ---
Progress Note - Text Progress Note Date: 03/14/21 Subjective: Patient was seen today as a cross coverage for Dr. Florentino. The patient was evaluated, chart reviewed, case discussed with the treatment team. the patient presented today more talkative, racing thoughts, and to some degree irritable. Initially she didn't want to talk to me and stated " I will talk to Dr. Florentino tomorrow". patient was more labile today and at times crying because her medications are not working. She reports Geodon caused her to have and Atarax decreased her blood pressure. Patient didn't elaborate much about her response to the medications and referred to discuss it further with her primary psychiatrist tomorrow. She reports want to start another medications and she doesn't know how long she can wait in the hospital until she feels is stable again. Generally she was hyper verbal with pressured speech, but she explained that because of her ASD diagnosis. she refused to discuss any medication changes with me, and reports will not take Geodon or Atarax from today. When spoke to the patient about her blood pressure reading today was not lower than normal range, she was very fixated on Atarax caused her hypotension which apparently delusional. Also, when asking about the reported , she described it as black secretions from her nipples and none reported by nursing. Objective: Vitals has been reviewed. Mental status examination; Appearance: The patient appears stated age, adequately groomed and dressed, no specific features. Gait/posture: Normal gait, Normal arm swinging: No abnormal movements. Attitude and behavior: engaged, cooperative, intermittent eye contact. Motor activity: increased psychomotor activity Speech: increased amount, pressured, and hyperverbal Mood: Anxious Affect: labile Thought form: goal-directed, linear, coherent. Thought content: Non-delusional, denies suicidal thoughts, denies homicidal thoughts, denies intentions or plans. Perception: Denies any auditory or visual hallucinations Attention: No impairment. Orientation: Patient patient was fully oriented to time place person and situation. Insight: Patient has fair insight about her psychiatric disorder. Judgment: Patient has fair judgment about her psychiatric treatment. Assessment: bipolar disorder, manic episode. Post traumatic stress disorder. Cluster B traits. Autism spectrum disorder. Plan: Continue inpatient level of care due to need for further monitoring and stabilization Precautions: Continue 15 minutes check for safety. Consider medical consultation if any acute medical issues arise. Provide the patient individual, group therapy, substance use disorder counseling to give better insight and learn coping skills. Medications: patient states that she will not take Geodon or Atarax because of side effects and refused to discuss any medication changes with me, preferred to discuss medications with her primary psychiatrist. Continue Prozac 20 mg daily for depression, anxiety, and PTSD. Continue nicotine replacement therapy. Continue as needed medications for psychiatric emergencies including psychosis, agitation and anxiety. Continue non-psychiatric medications for medical conditions as recommended by the medical team. Discharge patient to OUTPATIENT services upon a stabilization
[2021-03-14] MEDS: ALBUTEROL INHALER 60 PUFF/8 GM INHALER (MHU) INHALATION PRN (17:02)
[2021-03-14] MEDS: FLUoxetine HCL 20 MG CAP PO SCH (18:51)
[2021-03-14] MEDS: MELATONIN 5 MG TABLET PO SCH (21:58)
[2021-03-14] MEDS: hydrOXYzine HCL 25 MG TAB PO SCH (21:58)
[2021-03-15] MEDS: ALBUTEROL INHALER 60 PUFF/8 GM INHALER (MHU) INHALATION PRN (05:30)
[2021-03-15] MEDS: MUPIROCIN 2% OINT 22 GM TUBE TOPICAL SCH ×3 (08:01→20:58)
[2021-03-15] MEDS: ZIPRASIDONE 20 MG CAP PO SCH (08:01)
[2021-03-15] MEDS: ATORVASTATIN 20 MG TAB PO SCH (08:01)
--- NOTE | 2021-03-15 10:00 | P.PN ---
Progress Note - Text Progress Note Date: 03/15/21 Interval History: Patient was seen wandering the hallways and was directable and agreeable to sp nura with marine underwriter in the office. The patient reports that she has had a difficult weekend. She attributes this to side effects from her medications. She feels like the Geodon has been causing her to lactate. Furthermore, the patient reports that the Atarax has been causing her to have increased blood pressure. Review of her blood pressure from yesterday morning did display elevated blood pressure of 147/79 but otherwise no other significant concern. Regardless patient is adamant about stopping her geodon and atarax. The patient also expresses she has been gaining significant weight with geodon and also is concerned about the side effect of elevated lipids. It was explained to her all antipsychotics are capable of this however she is agreeable to restart abilify as she felt that she tolerated that medication better. She is otherwise not reporting any suicidal or homicidal ideation, intention, and/or plan. She reports no auditory or visual hallucinations. She is future-oriented and looking forward to starting DBT in the outpatient setting. Vital Signs Temp 97.5 F L 03/15/21 07:32 Pulse 97 03/15/21 07:32 Resp 16 03/15/21 07:32 BP 134/79 03/15/21 07:32 Pulse Ox 100 03/14/21 08:59 Intake & Output 03/14/21 03/15/21 03/15/21 18:59 06:59 18:59 Weight 56 kg Mental Status Exam: General Appearance: Patient appears to be stated age is alert, directable, and cooperative. Patient is of a thin build and is wearing glasses. She has multiple tattoos. Behavior: Psychomotor appears normal today. Eye contact is fair. Speech: Patient's speech is pressured, spontaneous, loud in volume. Mood/Affect: Mood is "Pretty anxious." Affect is elevated, expansive and intense. Suicidality/Homicidality: Patient denies having any suicidal or homicidal id eation intent or plan. Perceptions: Patient denies any visual hallucinations and denies any auditory hallucinations Though content/process: There is no evidence of any delusional thought content a nd thought process is with a flight of ideas. Memory and concentration: AOX3, grossly intact for the purposes of this session Judgment and insight: Poor Assessment Bipolar disorder, manic episode Autism spectrum disorder Posttraumatic stress disorder Cluster B personality traits Plan: -Patient continues to meet criteria for inpatient psychiatric admission for symptom stabilization and safety. Patient has signed adult voluntary form. -Medications: Discontinue geodon. Start Abilify 10 mg for mood stabilization Continue Prozac 20 mg by mouth daily at bedtime for depression/anxiety/PTSD Discontinue Atarax as per patient preference. -When necessary Haldol for agitation/aggression. -NRT - nicotine patch -SW on board for discharge planning. Encouraged the patient to participate in milieu.
[2021-03-15] MEDS: MELATONIN 5 MG TABLET PO SCH (20:58)
[2021-03-15] MEDS ORDERED: FLUoxetine HCL 20 MG CAP PO SCH (21:00)
[2021-03-15] MEDS ORDERED: ARIPiprazole 10 MG TAB PO SCH (21:00)
[2021-03-16 00:41] VITALS: PULSE 119; TEMP 97.7
[2021-03-16 01:42] LABS: Appearance,Urine Cloudy (Clear); Bacteria,Urine Rare /hpf; Bilirubin,Urine Negative (Negative); Blood,Urine Negative (Negative); Color,Urine Yellow; Glucose,Urine (UA) Negative (Negative); Ketones,Urine Negative (Negative); Leukocyte Esterase,Urine Large (Negative); Mucus,Urine Occasional /hpf; Nitrite,Urine Negative (Negative); Protein,Urine Trace (Negative); RBC,Urine 1 /hpf (0-5); Specific Gravity,Urine 1.031 (1.001-1.035); Squamous Epithelial Cell,Urine 16 /hpf (0-4); Urobilinogen,Urine <2.0 mg/dL (<2.0); WBC,Urine 23 /hpf (0-5)
[2021-03-16 06:52] VITALS: BP 139/89; RESP 17
[2021-03-16] MEDS ORDERED: PANTOPRAZOLE 40 MG TABLET PO SCH (07:30)
[2021-03-16] MEDS: MUPIROCIN 2% OINT 22 GM TUBE TOPICAL SCH (09:20)
[2021-03-16] MEDS: ATORVASTATIN 20 MG TAB PO SCH (09:20)
--- NOTE | 2021-03-16 11:54 | P.DS ---
Providers Date of admission: 03/07/21 10:06 Expected date of discharge: 03/16/21 Attending physician: Paul Florentino MD Consults: 03/07/21 09:32 Consult Physician Routine Consulting Provider: Kady Osorio Consult Reason/Comments: H & P new admission Do you want consulting provider notified?: Already Contacted Primary care physician: [facility] - Discharge Diagnosis(es) (1) Bipolar disorder, unspecified Current Visit: Yes Status: Acute Priority: High (2) PTSD (post-traumatic stress disorder) Current Visit: Yes Status: Chronic Priority: Medium (3) Autism spectrum disorder Current Visit: Yes Status: Chronic Priority: Medium (4) Cluster B personality disorder Current Visit: Yes Status: Chronic Priority: Medium Hospital Course: Admission HPI: Initial psychiatric evaluation was completed by Dr. Ledbetter on 03/07/2021 who wrote: "The patient is a 30-year-old female. She has been residing with her mother who brought her to the ED for evaluation. The patient had high anxiety. She was hyperverbal and showed excessive energy. She was disorganized in her thoughts. The patient has had long-term psychiatric issues. She said that she has had 18 or 19 psychiatric hospitalizations. Her last hospitalization was in [place] in October 2017. She has been living in [place] for a few years. The patient was that she has had one hospitalization in this facility about 10 years ago when she was hospitalized for depression. She said that she has been diagnosed with autism or Asperger's as a child and in fact starting at a very young age has been tried on various medications. She was somewhat vague about indication for these medications. She notes that at age 12, she was tried on lithium and has been tried for 3 other times on lithium the last time being when she was 17 or 18. She said each time she was on lithium, she has blackouts. She states that starting as a child and continuing up to present, she has been on most if not every psychotropic medication that she is aware of. She listed about 8 or 9 psychiatric diagnoses that she has had including schizophrenia, schizoaffective disorder, bipolar disorder, trichotillomania, obsessive- compulsive disorder amongst others. She says that she believes she likely has bipolar disorder. She notes that she has episodes of rayo where she has decreased need for sleep. She will have excessive energy as well. She reports fast thoughts. People tell her she is talking too much and that she cannot stop talking. She will have impulsive behavior. She said that she has been in a manic episode for the last 1-2 weeks. She notes in the past that she will get into manic episodes that may last one to 2 weeks and then she can go from that into depression. She says that she can cycle back and forth between manic episodes that she described and depression. She has been on a combination of Abilify and Prozac, though she stopped the 6 months ago because she thought they were causing . She said in the last 6 months, she essentially has only been using marijuana to help quiet some of her psychiatric symptoms. She notes some long-term use of marijuana going back to teenage years. She's been smoking marijuana on a daily basis. She feels that marijuana has been somewhat helpful for her to manage her symptoms. She has that she can get into panic attacks where it is hard to breathe. She will do behaviors such as "stemming" in order to help calm her nerves. She is unable to recall if she has had any episodes of abnormal movements. She was uncertain about whether she has had auditory hallucinations. She says that she has some visual distubances which she sees as a kind of shimmering around electric towers. She says she recognizes that this is not likely reality. She indicated some issues of posttraumatic problems, though did not provide details. She is coming on any psychotropic medications. She is mid for further evaluation. Hospital course: Upon admission to the unit patient was initially presenting with significant symptoms of rayo including pressured speech, flight of ideas, loose association, and tangential thinking. Her mood was noted to be dysphoric and her affect was intense. Patient was however directable and agreeable to commence treatment. The patient was initially started on a regimen of Zyprexa 5 mg 3 times a day to address her bipolar manic symptoms. The patient expressed dislike for the Zyprexa complaining of significant side effects and oversedation. She was agreeable to starting a trial of Geodon and Prozac. Patient initially tolerated this medication regimen well and these medications were gradually titrated. Although the patient initially presented with significant improvement in regards her target symptoms of sleep, speech, and other manic symptoms, she began to complain of side effects these medications including and elevated blood pressure and nausea. She was transitioned to Abilify as per her preference stating that although it caused her to lactate, it has provided her significant relief in the past. The patient reports the primary reason she was able to avoid hospitalization for the past 3 years was marijuana. She is precontemplative at this time in regards to quitting marijuana. The patient has had significant issues with staff during this hospital stay and reported that some staff members triggered her PTSD. Patient displayed significant splitting behavior and thoughts while on the unit. After transitioning back to abilify and prozac, the patient reports that she had another episode of a "seizure" along with nausea, fever, and chills. The patient expressed that she was unhappy with her inpatient psychiatric admission and requested discharge. On the day of discharge, the patient is not reporting any suicidal or homicidal ideation, intention, and/or plan. She denies any access to firearms or other weapons. She reports future orientation, stating that she is excited to go home so that she may sleep in her own bed, see her mother, and address her psychiatric symptoms with the use of marijuana, a white noise machine for sleep, and supplements to address her somatic issues. She is not reporting any auditory or visual hallucinations. She is denying any paranoia or delusions. The patient was adherent with her medications and although endorsing significant side effects, states that she will continue to take these medications and follow-up with her outpatient appointments. Review of the patient's lab values and vitals revealed no significant abnormality aside from a urinary tract infection. The patient does not endorse any fever, chills, dysuria, polyuria, or smell from her urine at this time. The patient does have a significant history of marijuana use and was counseled on abstaining from alcohol and marijuana but she remains be contemplative. Prior to discharge, a family meeting will be arranged by social media marketer to answer any questions and ensure safety. Mental status exam: General Appearance: Patient appears to be stated age is alert, pleasant, and cooperative. Patient is in no acute distress and has fair hygiene and grooming. Patient is dressed in her home clothes. She has multiple tattoos. She is wearing glasses. Behavior: Patient is calmly seated without any agitated behavior. Psychomotor activity slightly elevated and eye contact is appropriate. Speech: Patient's speech is fluent and nonpressured. Patient does speak fast but is interruptible. More linear and easier to follow. Mood/Affect: Patient reports their mood is "I just want to go home." Affect is irritable but otherwise with appropriate range. Suicidality/Homicidality: Patient denies having any suicidal or homicidal ideation intent or plan. Perceptions: Patient denies any auditory or visual hallucinations. Though content/process: There is no evidence of any delusional thought content and thought process is linear and goal-directed. The patient is future oriented. Memory and concentration: AOX3, grossly intact for the purposes of this session. Can spell "WORLD" backwards correctly. Judgment and insight: Improved with guarded prognosis Impression: Bipolar disorder, unspecified, manic episode Posttraumatic stress disorder Cluster B personality traits, suspect borderline personality disorder Autism spectrum disorder as per history Plan: -Continue with discharge today as patient has improved and stabilized psychiatrically and is not currently an imminent threat to herself and/or others. Patient will remain at chronically elevated risk for harm to self and/or others due to her lack of insight and poor ego integrity. -Continue medications: Abilify 10 mg by mouth at bedtime for mood augmentation/stabilization Prozac 20 mg by mouth at bedtime for depression/anxiety/PTSD -Patient was counseled on the need for medication compliance and appropriate follow-up at mental health and also primary care for medical issues. Patient verbalized understanding and agreed. -Social work to arrange for and conduct family meeting to ensure safety upon discharge and answer any questions/concerns. Social work also to arrange for patients follow up appointments with [facility] for psychiatric care along with follow up with primary care provider. -The patient would greatly benefit from dialectical behavioral therapy. -Patient counseled on abstaining from recreational drugs and marijuana and alcohol. Was informed/educated on the adverse effects on their physical and mental health. Patient was offered substance abuse treatment however declined at this time. -Patient was instructed to return to the hospital or seek immediate medical care if their psychiatric or medical symptoms do worsen or reoccur. -Psychoeducation and supportive therapy provided to patient. Risks and benefits of pharmacological treatment versus the risks and benefits of nontreatment weight and discussed. Informed consent discussion held. Common side effects of psychotropics discussed such as, but not limited to headache, GI disturbance, sexual dysfunction, movement disorders, sedation, and orthostatic hypotension. Life threatening and blackbox warnings of prescribed medications also discussed. Potential risks of operating a vehicle or heavy machinery discussed with patient at length. Advised on importance of compliance and a reliable and responsible manner. Patient advised to review FDA consumer labeling of all medications prior to taking. Patient verbalized understanding of potential risks, and agrees with current treatment plan. Patient advised to medically contact physician/emergency personnel if any acute changes in condition occur. Vital Signs Temp 97.7 F 03/16/21 06:52 Pulse 119 H 03/16/21 06:52 Resp 17 03/16/21 06:52 BP 139/89 03/16/21 06:52 Pulse Ox 98 03/16/21 06:52 Laboratory Results WBC 5.2 k/uL (3.8-10.6) 03/08/21 07:04 RBC 5.03 m/uL (3.80-5.40) 03/08/21 07:04 Hgb 15.5 gm/dL (11.4-16.0) 03/08/21 07:04 Hct 46.2 % (34.0-46.0) H 03/08/21 07:04 MCV 91.7 fL (80.0-100.0) 03/08/21 07:04 MCH 30.9 pg (25.0-35.0) 03/08/21 07:04 MCHC 33.7 g/dL (31.0-37.0) 03/08/21 07:04 RDW 12.4 % (11.5-15.5) 03/08/21 07:04 Plt Count 203 k/uL (150-450) 03/08/21 07:04 MPV 7.4 03/08/21 07:04 Neutrophils % 42 % 03/08/21 07:04 Lymphocytes % 46 % 03/08/21 07:04 Monocytes % 7 % 03/08/21 07:04 Eosinophils % 2 % 03/08/21 07:04 Basophils % 1 % 03/08/21 07:04 Neutrophils # 2.2 k/uL (1.3-7.7) 03/08/21 07:04 Lymphocytes # 2.4 k/uL (1.0-4.8) 03/08/21 07:04 Monocytes # 0.4 k/uL (0-1.0) 03/08/21 07:04 Eosinophils # 0.1 k/uL (0-0.7) 03/08/21 07:04 Basophils # 0.0 k/uL (0-0.2) 03/08/21 07:04 Sodium 141 mmol/L (137-145) 03/08/21 07:04 Potassium 3.8 mmol/L (3.5-5.1) 03/08/21 07:04 Chloride 106 mmol/L (98-107) 03/08/21 07:04 Carbon Dioxide 23 mmol/L (22-30) 03/08/21 07:04 Anion Gap 12 mmol/L 03/08/21 07:04 BUN 14 mg/dL (7-17) 03/08/21 07:04 Creatinine 0.74 mg/dL (0.52-1.04) 03/08/21 07:04 Est GFR (CKD-EPI)AfAm >90 (>60 ml/min/1.73 sqM) 03/08/21 07:04 Est GFR (CKD-EPI)NonAf >90 (>60 ml/min/1.73 sqM) 03/08/21 07:04 Glucose 91 mg/dL (74-99) 03/08/21 07:[address] Glu mg/dL 88 03/08/21 07:04 Hemoglobin A1c 4.7 % (4.0-6.0) 03/08/21 07:04 Calcium 9.8 mg/dL (8.4-10.2) 03/08/21 07:04 Total Bilirubin 0.9 mg/dL (0.2-1.3) 03/08/21 07:04 Conjugated Bilirubin 0.0 mg/dL (0.0-0.3) 03/08/21 07:04 Unconjugated Bilirubin 0.9 mg/dL (0.0-1.1) 03/08/21 07:04 Delta Bilirubin 0.0 mg/dL (0.0-0.2) 03/08/21 07:04 AST 21 U/L (14-36) 03/08/21 07:04 ALT 13 U/L (4-34) 03/08/21 07:04 Alkaline Phosphatase 55 U/L (38-126) 03/08/21 07:04 Total Protein 7.9 g/dL (6.3-8.2) 03/08/21 07:04 Albumin 5.2 g/dL (3.5-5.0) H 03/08/21 07:04 Triglycerides 117.0 mg/dL (0.0-149.0) 03/08/21 07:04 Cholesterol 256 mg/dL (0-200) H 03/08/21 07:04 LDL Cholesterol, Calc 175.6 mg/dL (0.0-131.0) H 03/08/21 07:04 VLDL Cholesterol, Calc 23.40 mg/dL (5.00-40.00) 03/08/21 07:04 HDL Cholesterol 57.0 mg/dL (40.0-60.0) 03/08/21 07:04 Cholesterol/HDL Ratio 4.49 03/08/21 07:04 TSH 0.834 mIU/L (0.465-4.680) 03/08/21 07:04 Urine Color Yellow 03/16/21 01:15 Urine Appearance Cloudy (Clear) H 03/16/21 01:15 Urine pH 5.0 (5.0-8.0) 03/16/21 01:15 Ur Specific [place] 1.031 (1.001-1.035) 03/16/21 01:15 Urine Protein Trace (Negative) H 03/16/21 01:15 Urine Glucose (UA) Negative (Negative) 03/16/21 01:15 Urine Ketones Negative (Negative) 03/16/21 01:15 Urine Blood Negative (Negative) 03/16/21 01:15 Urine Nitrite Negative (Negative) 03/16/21 01:15 Urine Bilirubin Negative (Negative) 03/16/21 01:15 Urine Urobilinogen <2.0 mg/dL (<2.0) 03/16/21 01:15 Ur Leukocyte Esterase Large (Negative) H 03/16/21 01:15 Urine RBC 1 /hpf (0-5) 03/16/21 01:15 Urine WBC 23 /hpf (0-5) H 03/16/21 01:15 Ur Squamous Epith Cells 16 /hpf (0-4) H 03/16/21 01:15 Calcium Oxalate Crystal Moderate /hpf (None) H 03/07/21 07:14 Urine Bacteria Rare /hpf (None) H 03/16/21 01:15 Hyaline Casts 1 /lpf (0-2) 03/07/21 07:14 Urine Mucus Occasional /hpf (None) H 03/16/21 01:15 Urine HCG, Qual Not Detected (Not Detectd) 03/07/21 07:14 Urine Opiates Screen Not Detected (NotDetected) 03/07/21 07:14 Ur Oxycodone Screen Not Detected (NotDetected) 03/07/21 07:14 Urine Methadone Screen Not Detected (NotDetected) 03/07/21 07:14 Ur Propoxyphene Screen Not Detected (NotDetected) 03/07/21 07:14 Ur Barbiturates Screen Not Detected (NotDetected) 03/07/21 07:14 U Tricyclic Antidepress Not Detected (NotDetected) 03/07/21 07:14 Ur Phencyclidine Scrn Not Detected (NotDetected) 03/07/21 07:14 Ur Amphetamines Screen Not Detected (NotDetected) 03/07/21 07:14 U Methamphetamines Scrn Not Detected (NotDetected) 03/07/21 07:14 U Benzodiazepines Scrn Not Detected (NotDetected) 03/07/21 07:14 Urine Cocaine Screen Not Detected (NotDetected) 03/07/21 07:14 U Marijuana (THC) Screen Detected (NotDetected) H 03/07/21 07:14 Coronavirus (PCR) Not Detected (Not Detectd) 03/07/21 09:29 Allergies Allergy/AdvReac Type Severity Reaction Status Date / Time amoxicillin Allergy Rash/Hives Verified 03/08/21 10:59 clindamycin Allergy Rash/Hives Verified 03/08/21 10:59 peanut AdvReac Nausea & Verified 03/08/21 11:26 Vomiting & Diarrhea tree nut [Nut] AdvReac Nausea & Verified 03/08/21 11:25 Vomiting & Diarrhea Patient Condition at Discharge: Stable Plan - Discharge Summary Discharge Rx Participant: No New Discharge Prescriptions: New Hydrocortisone Cream [Hydrocortisone 1% Cream] 1 applic TOPICAL BID PRN 14 Da ys applic PRN Reason: Skin Irritation Atorvastatin [Lipitor] 20 mg PO DAILY 30 Days tab Pantoprazole [Protonix] 40 mg PO AC-BRKFST 30 Days tablet. ARIPiprazole [Abilify] 10 mg PO HS 30 Days tab Mupirocin 2% Oint [Bactroban 2% Oint] 1 applic TOPICAL TID 7 Days applic FLUoxetine HCL [PROzac] 20 mg PO HS 30 Days cap Continue Albuterol Sulfate [Proair Hfa] 1 - 2 puff INHALATION RT-Q6H PRN PRN Reason: Shortness Of Breath Discontinued Atorvastatin [Lipitor] 20 mg PO DAILY Discharge Medication List Albuterol Sulfate [Proair Hfa] 1 - 2 puff INHALATION RT-Q6H PRN 03/07/21 [History] ARIPiprazole [Abilify] 10 mg PO HS 30 Days tab 03/16/21 [Rx] Atorvastatin [Lipitor] 20 mg PO DAILY 30 Days tab 03/16/21 [Rx] FLUoxetine HCL [PROzac] 20 mg PO HS 30 Days cap 03/16/21 [Rx] Hydrocortisone Cream [Hydrocortisone 1% Cream] 1 applic TOPICAL BID PRN 14 Days applic 03/16/21 [Rx] Mupirocin 2% Oint [Bactroban 2% Oint] 1 applic TOPICAL TID 7 Days applic 03/16/21 [Rx] Pantoprazole [Protonix] 40 mg PO AC-BRKFST 30 Days tablet. 03/16/21 [Rx] Follow up Appointment(s)/Referral(s): [facility] [Primary Care Provider] - 1-2 days Activity/Diet/Wound Care/Special Instructions: Activity and diet as tolerated. Avoid the use of street drugs and alcohol. Take all medications as prescribed. When you are in need of refills on your medications please contact your medical provider and/or outpatient psychiatrist to have this done. Please go to scheduled outpatient appointment for aftercare treatment. If symptoms return or become worse, call the crisis line at and/or go to the nearest emergency room for evaluation. Discharge Disposition: HOME SELF-CARE
== END 2021-03-16 13:10 | disposition home or self-care (01) | DRG 885 ==
LOC: EC 06:09 → 3MHU 10:06
PROVIDERS: ADMIT Psychiatry & Neurology Psychiatry; ATTEND Psychiatry & Neurology Psychiatry
DX: F31.9 Bipolar disorder, unspecified (principal); N39.0 Urinary tract infection, site not specified; R45.851 Suicidal ideations; F25.9 Schizoaffective disorder, unspecified; E78.00 Pure hypercholesterolemia, unspecified; E78.5 Hyperlipidemia, unspecified; F12.23 Cannabis dependence with withdrawal; F41.0 Panic disorder [episodic paroxysmal anxiety]; F42.9 Obsessive-compulsive disorder, unspecified; F43.10 Post-traumatic stress disorder, unspecified; F60.89 Other specific personality disorders; F63.3 Trichotillomania; F84.5 Asperger's syndrome; G47.00 Insomnia, unspecified; J45.20 Mild intermittent asthma, uncomplicated; M41.9 Scoliosis, unspecified; R56.9 Unspecified convulsions; Z79.899 Other long term (current) drug therapy; Z87.891 Personal history of nicotine dependence; Z91.5 Personal history of self-harm; Z20.822 Contact with and (suspected) exposure to COVID-19
CPT/HCPCS: 80053; 80061; 80306; 81001; 81025; 82075; 82248; 83036; 84443; 85025; 87086; 87635; 99285